=== PATIENT | female | born 1995 | race Caucasian/White ===

== ENCOUNTER → 2024-01-06 | Outpatient (CLI) | payer OTHER ==
[2024-01-09 01:06] LABS: FACTOR II ACTIVITY 106 % (50-154); FACTOR V 126 % (70-150)
== END ==
LOC: M WUC 13:02
PROVIDERS: ATTEND Family Medicine
DX: Z86.718 Personal history of other venous thrombosis and embolism (principal)

== ENCOUNTER → 2024-08-22 | Outpatient (CLI) | payer OTHER | LOC: M RAD 09:58 | DX: G08 Intracranial and intraspinal phlebitis and thrombophlebitis (principal); R51.9 Headache, unspecified ==